=== PATIENT | female | born 1970 | race Two or more races ===

== ENCOUNTER 2020-03-29 12:50 | Outpatient (CLI) | payer OTHER ==
[~2020-03-29 12:50] MED LIST: DICLOFENAC POTA50 MG PO; KENALOG-1010 MG/1 ML IJ; LIDOCAINE IJ; METHOCARBAMOL500 MG PO
== END 2020-03-29 12:51 | disposition home or self-care (01) ==
LOC: RAD 12:50
DX: M77.12 Lateral epicondylitis, left elbow (principal)

== ENCOUNTER 2024-02-07 08:19 | Outpatient (CLI) | payer OTHER | END 2024-02-07 08:30 | disposition home or self-care (01) | LOC: TOM 08:19 | PROVIDERS: ATTEND Internal Medicine | DX: E04.2 Nontoxic multinodular goiter (principal); R13.10 Dysphagia, unspecified; E04.9 Nontoxic goiter, unspecified ==

== ENCOUNTER 2024-07-17 12:27 | Outpatient (CLI) | payer OTHER ==
[~2024-07-17 12:27] MED LIST changes: +CARAFATE1 GM PO; +INTESTINEX680 M1 PO; +PEPCID AC20 MG PO
== END 2024-07-17 12:39 | disposition home or self-care (01) ==
LOC: MAMO-SONO 12:27
PROVIDERS: ATTEND Obstetrics & Gynecology
DX: N64.4 Mastodynia (principal)

== ENCOUNTER 2024-08-21 13:28 | Outpatient (CLI) | payer OTHER | END 2024-08-21 13:31 | disposition home or self-care (01) | LOC: NUCLEAR 13:28 | PROVIDERS: ATTEND Obstetrics & Gynecology | DX: M85.80 Other specified disorders of bone density and structure, unspecified site (principal); M81.0 Age-related osteoporosis without current pathological fracture ==

== ENCOUNTER 2025-04-09 14:08 | Outpatient (CLI) | payer OTHER | END 2025-04-09 14:10 | disposition home or self-care (01) | LOC: SONOGRAMA 14:08 | DX: E04.2 Nontoxic multinodular goiter (principal) ==

== ENCOUNTER 2025-04-17 12:11 | Outpatient (CLI) | payer OTHER | END 2025-04-17 12:15 | disposition home or self-care (01) | LOC: RAD 12:11 | PROVIDERS: ATTEND Otolaryngology | DX: M48.02 Spinal stenosis, cervical region (principal); M48.00 Spinal stenosis, site unspecified ==

== ENCOUNTER 2025-05-02 10:42 | Outpatient (CLI) | payer OTHER | END 2025-05-02 10:47 | disposition home or self-care (01) | LOC: TOM 10:42 | DX: M54.2 Cervicalgia (principal) ==

== ENCOUNTER 2025-10-30 10:23 | Outpatient (CLI) | payer OTHER | END 2025-10-30 10:27 | disposition home or self-care (01) | LOC: SONOGRAMA 10:23 | PROVIDERS: ATTEND Surgery | DX: E04.2 Nontoxic multinodular goiter (principal) ==